=== PATIENT | male | born 1990 | race Two or more races ===

== ENCOUNTER 2016-10-14 16:08 | Emergency (ER) | payer OTHER ==
[~2016-10-14] VITALS: Ht 175.3 cm; Wt 97.0 kg
[2016-10-14 16:15] VITALS: BP 108/65; PULSE 58; RESP 14; TEMP 97.7; O2SAT 98
[2016-10-14] MEDS ORDERED: CYCLOBENZAPRINE HCL 10 MG TAB PO ONE (16:30)
[2016-10-14] MEDS ORDERED: DEXAMETHASONE SOD PHOS 4 MG/ML VIAL IM ONE (16:30)
--- NOTE | 2016-10-14 16:34 | PD ---
HPI Chief Complaint: Back/ Neck Pain or Injury Time Seen by Provider: 16:31 Travel History International Travel<30 days: No Contact w/Intl Traveler<30days: No Traveled to known affect area: No History of Present Illness HPI Patient comes in complaining of right low back pain radiating down his right lower extremity ongoing for 2 weeks. Patient describes the pain as a tightness/ burning sensation. Patient denies any trauma, fevers, loss or change of bowel or bladder, IV drug use, abdominal pain, chest pain, shortness breath, or numbness or tingling anywhere. Patient reports he had similar in 2011 was given exercises to do at that time seemed to help. Patient states pain started during a recent move. Patient reports he has been taking Advil for this with minimal relief of his symptoms. Pain is worse with bending forward. PFSH Past Medical History Medical History: Denies Significant Hx Tetanus Vaccination: Unknown Influenza Vaccination: No Past Surgical History Surgical History: No Previous Surgery Social History Alcohol Use: No Tobacco Use: Yes (3-4 CIGS/DAY) Substance Use: No Allergies-Medications (Allergen,Severity, Reaction): Coded Allergies: No Known Allergies (Unverified , 10/14/16) Reported Meds & Prescriptions Reported Meds & Active Scripts Active Prednisone (21) 10 mg tab Dose Pack (Prednisone) 10 Mg Pack 10 Mg PO DIRECTED Start 10/15/16 Flexeril (Cyclobenzaprine HCl) 10 Mg Tab 10 Mg PO Q8HR PRN Review of Systems Except as stated in HPI: all other systems reviewed are Neg Physical Exam Narrative GENERAL: Well-developed, overly nourished, in no acute distress, and non-ill appearing. SKIN: Focused skin assessment warm and dry. HEAD: Atraumatic. Normocephalic. EYES: Pupils equal and round. EOMI. No scleral icterus. No injection or drainage. ENT: No nasal bleeding or discharge. Mucous membranes pink and moist. NECK: Trachea midline. Supple. No nuclear rigidity. RESPIRATORY: No accessory muscle use. No respiratory distress. MUSCULOSKELETAL: No obvious deformities. No clubbing. No cyanosis. No edema. Full range of motion. No tenderness crepitus or midline lumbar spine. Patient reports tenderness to palpation near right SI joint. Straight leg test negative bilaterally. NEUROLOGICAL: Awake and alert. No obvious cranial nerve deficits. Motor grossly within normal limits. Normal speech. PSYCHIATRIC: Appropriate mood and affect; insight and judgment normal. Data Data Last Documented VS Vital Signs Date Time Temp Pulse Resp B/P Pulse Ox O2 Delivery O2 Flow Rate FiO2 10/14/16 16:15 97.7 58 14 108/65 98 Orders Dexamethasone Inj (Decadron Inj) (10/14/16 16:30) Cyclobenzaprine (Flexeril) (10/14/16 16:30) MDM Medical Decision Making Medical Screen Exam Complete: Yes Emergency Medical Condition: Yes Differential Diagnosis Fracture, strain, sciatica, contusion, other Narrative Course The patient presented complaining of back pain with radiation down leg. There was no history of recent fall or trauma. There was no evidence to support genitourinary etiology. There is also no evidence to suggest vascular pathology such as AAA dissection. No fevers or other evidence to suspect infectious processes, abscess, osteomyelitis etc. The patients neurological exam is normal with normal motor and sensory. There is no saddle paresthesias reported and no bowel or bladder incontinence or retention. I suspect the pain is mechanical in nature with sciatica. Clinical suspicion, plan of care and management was discussed with the patient. The patient was instructed to follow up with their health care provider. The patient was also instructed to return if the pain worsened, changed, or developed weakness or bowel or bladder trouble. The patient agreed with plan. Patient in no obvious distress upon re-evaluation. Patient was asked if they wanted to speak to my attending, which the patient did not wish to do at this time. Any questions/concerns in reference to patient diagnosis/condition discussed and clarified prior to patient's discharge. Reinforced sheer importance of close follow up with patient's primary physician or primary care clinic. Instructed patient to return to ED immediately, if symptoms return/ worsen. Pt showed understanding of above instructions. Further instructions and recommendations were detailed in discharge paperwork. Pt ambulated without difficulty out of ED at discharge. Diagnosis Primary Impression: Sciatica of right side Referrals: Boni Anton MD Patient Instructions: General Instructions, Sciatica (ED) Additional Instructions: Follow-up with your primary care physician and/or orthopedics this week for reevaluation. Take all medication as prescribed. Return to the emergency department if symptoms get worse. Med/Other Pt SpecificInfo: Prescription(s) given Scripts Prednisone (21) 10 mg tab Dose Pack 10 Mg Pack10 Mg PO DIRECTED #1 DSPK Ref 0 Start 10/15/16 Prov:Alexus Moore MD 10/14/16 Cyclobenzaprine (Flexeril)10 Mg Tab10 Mg PO Q8HR PRN (MUSCLE PAIN) #15 TAB Ref 0 Prov:Alexus Moore MD 10/14/16 Disposition: 01 DISCHARGE HOME Condition: Stable Geronimo Barrios Oct 14, 2016 16:34
[2016-10-14] MEDS ORDERED: PRED10PA PO (16:35)
[2016-10-14] MEDS ORDERED: CYCL1TAB29 PO (16:35)
== END 2016-10-14 17:04 | disposition home or self-care (01) ==
LOC: PHEFT 16:08
DX: M54.41 Lumbago with sciatica, right side (principal); F17.210 Nicotine dependence, cigarettes, uncomplicated
CPT/HCPCS: 96372; 99283; J1100

== ENCOUNTER 2016-11-14 10:33 | Emergency (ER) | payer OTHER ==
[~2016-11-14] VITALS: Ht 175.3 cm; Wt 100.0 kg
[~2016-11-14 10:33] MED LIST: CYCL1TAB29 PO; PRED10PA PO
[2016-11-14 10:34] VITALS: BP 135/71; PULSE 60; RESP 16; TEMP 97.8; O2SAT 100
[2016-11-14] MEDS ORDERED: HYDROmorphone HCL PF 1 MG/ML VIAL IM ONE (11:00)
[2016-11-14] MEDS ORDERED: ORPHENADRINE INJ 60 MG/2 ML AMP IM ONE (11:00)
[2016-11-14] MEDS ORDERED: KETOROLAC TROMETHAMINE 60 MG/2 ML (IM) VIAL IM ONE (11:00)
[2016-11-14] MEDS ORDERED: CYCL5TAB PO (11:49)
[2016-11-14] MEDS ORDERED: NAPR500 PO (11:49)
--- NOTE | 2016-11-14 11:50 | PD ---
HPI Chief Complaint: Back/ Neck Pain or Injury Time Seen by Provider: 10:45 Travel History International Travel<30 days: No Contact w/Intl Traveler<30days: No Traveled to known affect area: No History of Present Illness HPI 26-year-old male came to the emergency room with history of lower back pain more radiating towards his right. Patient says that he has had lower back pain issue for a long time. It has worsened since this morning where he is unable to move or lay still. 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 He was in this emergency room couple weeks ago for the same condition and was diagnosed with sciatica. He was asked to follow up with a primary care but he says that nothing much were done except for prescription for pain medication. He has also been in an emergency room in [place] in the past for back pain and was asked to do stretching exercises and was recommended to lose weight which patient says he has been doing and has lost 40 pounds so far. Movement makes the pain worse. It does not radiate down his leg today. Vital signs were otherwise stable. [facility] Past Medical History Narrative Medical List of his past medical, surgical, social and family history was reviewed from the nursing note. Asthma: Yes Social History Alcohol Use: Yes Tobacco Use: Yes (3-4 CIGS/DAY) Substance Use: Yes (MARIJUANA) Allergies-Medications (Allergen,Severity, Reaction): Coded Allergies: No Known Allergies (Unverified , 11/14/16) Comments No known drug allergies. Reported Meds & Prescriptions Reported Meds & Active Scripts Active Flexeril (Cyclobenzaprine HCl) 5 Mg Tab 5 Mg PO TID Naprosyn (Naproxen) 500 Mg Tab 500 Mg PO BID Narrative Medication List of his home medications reviewed from the nursing note. Review of Systems Except as stated in HPI: all other systems reviewed are Neg Physical Exam Narrative GENERAL: Awake, alert, moderate distress SKIN: Focused skin assessment warm/dry. HEAD: Atraumatic. Normocephalic. EYES: Pupils equal and round. No scleral icterus. No injection or drainage. ENT: No nasal bleeding or discharge. Mucous membranes pink and moist. NECK: Trachea midline. No JVD. CARDIOVASCULAR: Regular rate and rhythm. No murmur appreciated. RESPIRATORY: No accessory muscle use. Clear to auscultation. Breath sounds equal bilaterally. GASTROINTESTINAL: Abdomen soft, non-tender, nondistended. Hepatic and splenic margins not palpable. MUSCULOSKELETAL: No obvious deformities. No clubbing. No cyanosis. No edema. Paraspinal muscle spasm NEUROLOGICAL: Awake and alert. No obvious cranial nerve deficits. Motor grossly within normal limits. Normal speech. PSYCHIATRIC: Appropriate mood and affect; insight and judgment normal. Data Data Last Documented VS Vital Signs Date Time Temp Pulse Resp B/P Pulse Ox O2 Delivery O2 Flow Rate FiO2 11/14/16 10:34 97.8 60 16 135/71 100 Orders Hydromorphone Pf Inj (Dilaudid Pf Inj) (11/14/16 11:00) Orphenadrine Inj (Norflex Inj) (11/14/16 11:00) Ketorolac Inj (Toradol Inj) (11/14/16 11:00) MDM Medical Decision Making Medical Screen Exam Complete: Yes Emergency Medical Condition: Yes Medical Record Reviewed: Yes Differential Diagnosis Lumbar radiculopathy, acute on chronic back Narrative Course 11:47 AM patient was given IM Toradol, IM Dilaudid and IM Norflex for pain relief and muscle relaxation. I will discharge him home. I have educated him regarding lumbar radiculopathy and AST of lifting heavy weights for next 4-5 days. Patient understands. I'll give him a work note and prescription to go home with. Procedures EKG Prior to Arrival: No Diagnosis Primary Impression: Lumbar radiculopathy, right Additional Impression: Acute exacerbation of chronic low back pain Referrals: Primary Care Physician 1 week Additional Instructions: Please return to the ER if the condition worsens or any other new concerns. Do not lift weighed heavier than 5 pounds to the symptoms subside. Bedrest on firm surface. Go to rescue position when the pain is severe which is laying flat on your belly. Take the medications as per the prescription direction. Flexeril will make you dizzy and hence he should not be driving or lifting heavy weight while on it. Follow-up with your primary care in a week. If symptoms do not subside you might require an MRI as an outpatient basis. Your primary care should be able to order that. Med/Other Pt SpecificInfo: Prescription(s) given Scripts Cyclobenzaprine (Flexeril)5 Mg Tab5 Mg PO TID #15 TAB Ref 0 Prov:Artur,Shravanti R. MD 11/14/16 Naproxen (Naprosyn)500 Mg [id number] Mg PO BID #20 TAB Ref 0 Prov:Luke Siddiqui MD 11/14/16 Disposition: 01 DISCHARGE HOME Condition: Stable Luke Siddiqui MD November 14, 2016 11:49
== END 2016-11-14 12:00 | disposition home or self-care (01) ==
LOC: PHEFT 10:33
DX: M54.16 Radiculopathy, lumbar region (principal); F12.10 Cannabis abuse, uncomplicated; Z72.0 Tobacco use
CPT/HCPCS: 96372; 99283; J1170; J1885; J2360

== ENCOUNTER 2017-11-09 18:59 | Emergency (ER) | payer OTHER ==
[~2017-11-09 18:59] MED LIST changes: -CYCL1TAB29 PO; +CYCL5TAB PO; +NAPR500 PO; -PRED10PA PO
[2017-11-09 19:14] VITALS: BP 102/72; PULSE 65; RESP 20; TEMP 98.3; O2SAT 99
[2017-11-09] MEDS ORDERED: KETO10 PO (20:59)
--- NOTE | 2017-11-09 20:59 | PD ---
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 Patient complaining of left knee pain, anterior points to his patella, feels a sharp pain, worse when stepping down, rates it about a 4 out of 10 then he can go as high as 8 out of 10 when he is trying to get up. No known drug allergy Past medical history is only significant for asthma. [facility] Past Medical History Medical History: Denies Significant Hx Asthma: Yes Tetanus Vaccination: > 5 Years Influenza Vaccination: No Past Surgical History Surgical History: No Previous Surgery Social History Alcohol Use: Yes (SOCIAL) Tobacco Use: No Substance Use: Yes (MARIJUANA) Allergies-Medications (Allergen,Severity, Reaction): Coded Allergies: No Known Allergies (Unverified Adverse Reaction, Unknown, 11/09/17) Reported Meds & Prescriptions Reported Meds & Active Scripts Active No Active Prescriptions or Reported Medications Review of Systems General / Constitutional: No: Fever Eyes: No: Visual changes HENT: No: Headaches Cardiovascular: No: Chest Pain or Discomfort Respiratory: No: Shortness of Breath Gastrointestinal: No: Abdominal Pain Genitourinary: No: Dysuria Musculoskeletal: Positive: Pain (LT KNEE) Skin: No Rash Neurologic: No: Weakness Psychiatric: No: Depression Endocrine: No: Polydipsia Hematologic/Lymphatic: No: Easy Bruising Physical Exam Narrative GENERAL: SKIN: Warm and dry. HEAD: Atraumatic. Normocephalic. EYES: Pupils equal and round. No scleral icterus. No injection or drainage. ENT: No nasal bleeding or discharge. Mucous membranes pink and moist. NECK: Trachea midline. No JVD. CARDIOVASCULAR: Regular rate and rhythm. RESPIRATORY: No accessory muscle use. Clear to auscultation. Breath sounds equal bilaterally. GASTROINTESTINAL: Abdomen soft, non-tender, nondistended. MUSCULOSKELETAL: Extremities without clubbing, cyanosis, or edema. No obvious deformities. NEUROLOGICAL: Awake and alert. No obvious cranial nerve deficits. Motor grossly within normal limits. Five out of 5 muscle strength in the arms and legs. Normal speech. PSYCHIATRIC: Appropriate mood and affect; insight and judgment normal. Data Data Last Documented VS Vital Signs Date Time Temp Pulse Resp B/P (MAP) Pulse Ox O2 Delivery O2 Flow Rate FiO2 11/09/17 19:14 98.3 65 20 102/72 (82) 99 Orders Orders Knee, Complete (4vws) (11/09/17 20:50) MDM Medical Decision Making Medical Screen Exam Complete: Yes Emergency Medical Condition: Yes Medical Record Reviewed: Yes Differential Diagnosis Joint effusion versus patellar fracture versus dislocation versus patellar tendinitis Narrative Course X-ray does not show any evidence of fracture, dislocation, subluxation or joint effusion. Diagnosis Primary Impression: Left patellar tendinitis Patient Instructions: General Instructions, Patellar Tendinitis (ED) Scripts Ketorolac (Ketorolac) 10 Mg Tab 10 MG PO TID Y for Pain Management for 5 Days, #15 TAB 0 Refills Prov: Jacob Saleem MD 11/09/17 Disposition: 01 DISCHARGE HOME Condition: Stable Jacob Saleem MD Nov 09, 2017 20:59
--- NOTE | 2017-11-09 21:23 | RADRPT ---
EXAM DATE/TIME: 11/09/2017 21:02 [facility] COMPARISON: No previous studies available for comparison. INDICATIONS : Left knee pain around the patella region. MEDICAL HISTORY : None. SURGICAL HISTORY : None. ENCOUNTER: Initial ACUITY: 2 days PAIN SCORE: 7/10 LOCATION: Left knee FINDINGS: There is no fracture or subluxation of the left knee. No significant joint effusion seen. Lateral vie w suggests some thickening of distal quadriceps. I don't convincingly see a tear of the extensor mech anism. CONCLUSION: Potential extensor tendinosis. Otherwise negative left knee radiographs. Arron Perrin MD on November 09, 2017 at 21:19 Board Certified Radiologist. This report was verified electronically.
== END 2017-11-09 21:42 | disposition home or self-care (01) ==
LOC: PHED 18:59 → PHEFT 21:42
DX: M76.52 Patellar tendinitis, left knee (principal); J45.909 Unspecified asthma, uncomplicated; F12.90 Cannabis use, unspecified, uncomplicated
CPT/HCPCS: 73564; 99283